=== PATIENT | male | born 1985 | race Caucasian/White ===

== ENCOUNTER → 2023-08-06 | Outpatient (CLI) | payer OTHER ==
[2023-08-06 13:29] LABS: BASOPHILS ABSOLUTE AUTO 0.03 K/mm3 (0.00-0.23); BASOPHILS PERCENT AUTO 1 % (0-2); EOSINOPHILS ABSOLUTE AUTO 0.23 K/mm3 (0.00-0.68); EOSINOPHILS PERCENT AUTO 4 % (0-6); Hematocrit 46.7 % (37.0-53.0); Hemoglobin 16.8 g/dL (13.5-17.5); IMMATURE GRAN ABSOLUTE AUTO 0.01 K/mm3 (0.00-0.10); IMMATURE GRAN PERCENT AUTO 0 % (0-1); LYMPHOCYTES ABSOLUTE AUTO 1.87 K/mm3 (0.84-5.20); LYMPHOCYTES PERCENT AUTO 33 % (21-46); MONOCYTES ABSOLUTE AUTO 0.41 K/mm3 (0.16-1.47); MONOCYTES PERCENT AUTO 7 % (4-13); Mean Corpuscular HGB 30.5 pg (26.0-34.0); Mean Corpuscular Volume 85 fL (80-100); Mean Platelet Volume 10.2 fL (9.1-12.4); NEUTROPHILS ABSOLUTE AUTO 3.14 K/mm3 (1.96-9.15); NEUTROPHILS PERCENT AUTO 55 % (41-73); Platelet Count 266 K/mm3 (150-400); RDW Coefficient Variation 12.7 % (11.7-14.2); RDW Standard Deviation 39.2 fL (35.1-46.3); Red Blood Cell Count 5.51 M/mm3 (4.30-5.90); White Blood Cell Count 5.69 K/mm3 (4.00-11.30)
[2023-08-06 14:01] LABS: C-REACTIVE PROTEIN, EXT RANGE 0.446 mg/dL (0.000-0.300); CHOL/HDL RATIO 4.6; Cholesterol 185 mg/dL (50-200); HDL Cholesterol 40 mg/dL (>39); LDL/HDL RATIO 2.7; Low Density Lipoprotein Chol 109 mg/dL (0-110); Thyroid Stimulating Hormone 0.763 uIU/mL (0.360-4.800); Triglycerides 178 mg/dL (30-160); Very Low Density Lipoprot Chol 35 mg/dL (6-32)
[2023-08-07 09:12] LABS: A/G RATIO 1.9 (1.2-2.2); BILIRUBIN, TOTAL 1.3 mg/dL (0.0-1.2); CALCIUM, SERUM 9.2 mg/dL (8.7-10.2); CREATININE, SERUM 0.95 mg/dL (0.76-1.27); GLOBULIN, TOTAL 2.4 g/dL (1.5-4.5); POTASSIUM, SERUM 3.9 mmol/L (3.5-5.2); PROTEIN, TOTAL, SERUM 6.9 g/dL (6.0-8.5)
== END | disposition home or self-care (01) ==
LOC: LAB SHORT 11:24
PROVIDERS: Family Medicine
DX: Z00.01 Encounter for general adult medical examination with abnormal findings (principal); M79.641 Pain in right hand; M79.642 Pain in left hand
CPT/HCPCS: 80053; 80061; 84153; 84443; 85025; 85651; 86140; 86430

== ENCOUNTER → 2025-05-12 | Outpatient (CLI) | payer OTHER ==
[2025-05-12 18:01] LABS: BASOPHILS ABSOLUTE AUTO 0.05 K/mm3 (0.00-0.23); BASOPHILS PERCENT AUTO 1 % (0-2); EOSINOPHILS ABSOLUTE AUTO 0.28 K/mm3 (0.00-0.68); EOSINOPHILS PERCENT AUTO 4 % (0-6); Hematocrit 46.3 % (37.0-53.0); Hemoglobin 16.6 g/dL (13.5-17.5); IMMATURE GRAN ABSOLUTE AUTO 0.03 K/mm3 (0.00-0.10); IMMATURE GRAN PERCENT AUTO 0 % (0-1); LYMPHOCYTES ABSOLUTE AUTO 2.62 K/mm3 (0.84-5.20); LYMPHOCYTES PERCENT AUTO 35 % (21-46); MONOCYTES ABSOLUTE AUTO 0.47 K/mm3 (0.16-1.47); MONOCYTES PERCENT AUTO 6 % (4-13); Mean Corpuscular HGB Conc 35.9 g/dL (31.5-36.5); Mean Corpuscular Volume 83 fL (80-100); NEUTROPHILS ABSOLUTE AUTO 4.02 K/mm3 (1.96-9.15); NEUTROPHILS PERCENT AUTO 54 % (41-73); NRBC ABSOLUTE 0.00 K/mm3 (0.00-0.02); NRBC Auto 0.0 /100 WBC (0.0-0.2); Platelet Count 255 K/mm3 (150-400); RDW Coefficient Variation 12.5 % (11.7-14.2); RDW Standard Deviation 38.0 fL (35.1-46.3)
[2025-05-12 19:28] LABS: Alanine Aminotransfer (ALT/SGP 27 U/L (12-78); Albumin, Blood 4.1 g/dL (3.4-5.0); Albumin/Globulin Ratio 1.2 (0.8-1.8); Anion Gap 5 mmol/L (3-11); Aspartate Aminotrans (AST/SGOT 14 U/L (12-37); Bilirubin, Total 0.6 mg/dL (0.1-1.0); Blood Urea Nitrogen 14 mg/dL (8-24); CHOL/HDL RATIO 4.9; CO2, Blood 29 mmol/L (21-32); Calcium, Blood 8.6 mg/dL (8.5-10.1); Chloride, Blood 106 mmol/L (98-108); Cholesterol 163 mg/dL (50-200); Creatinine, Blood 1.35 mg/dL (0.60-1.20); Globulin, Blood 3.5 g/dL (2.2-4.0); Glucose, Blood 90 mg/dL (70-99); HDL Cholesterol 33 mg/dL (>39); LDL/HDL RATIO 2.8; Low Density Lipoprotein Chol 93 mg/dL (0-110); Potassium, Blood 3.4 mmol/L (3.5-5.5); Prostate Specific Antigen 1.140 ng/mL (0.000-4.000); Sodium, Blood 137 mmol/L (136-145); Thyroid Stimulating Hormone 1.350 uIU/mL (0.360-4.800); Total Protein, Blood 7.6 g/dL (6.4-8.2); Triglycerides 184 mg/dL (30-160); Very Low Density Lipoprot Chol 36 mg/dL (6-32)
== END | disposition home or self-care (01) ==
LOC: LAB SHORT 16:48 → LAB 16:48
PROVIDERS: Family Medicine
DX: Z00.01 Encounter for general adult medical examination with abnormal findings (principal); I10 Essential (primary) hypertension; N42.9 Disorder of prostate, unspecified; R53.83 Other fatigue
CPT/HCPCS: 80053; 80061; 84153; 84403; 84443; 85025